=== PATIENT | male | born 1950 | race Caucasian/White ===

== ENCOUNTER 2025-08-08 12:46 | Emergency (ER) | payer MEDICARE, SELFPAY ==
--- OUTSIDE RECORDS SUMMARY | 2025-08-08 12:49 | XMS_ITS | Clinical Summary ---
Author Organization [facility] Address [address] [place] [address] Phone [email or web address] Providers Care Forester Silviculture Name Role Phone Alexander Gutierrez MD Unavailable Social History Tobacco UseTypesPacks/DayYears UsedDateSmoking Tobacco: Never AssessedSex and Gender InformationValueDate RecordedSex Assigned at BirthNot on fileLegal Sex Male02/25/2024 7:12 PM PDTGender IdentityNot on fileSexual OrientationNot on file Plan of Treatment Not on file Care Teams Team MemberRelationshipSpecialtyStart DateEnd Date Alexander Gutierrez MD [address] [place] [address] [facility] Attributed Provider09/16/23
--- OUTSIDE RECORDS SUMMARY | 2025-08-08 12:49 | XMS_ITS | Patient Health Record ---
Author Organization [facility] Address [address] [place], [place] [id number] Care Team Providers Care Form Setter Steel Forms Name Role Phone Alexander Gutierrez Primary Care Provider Bridger Abrams Unavailable [phone] Allergies No Known Allergies Reason For Referral No Information Medications Medication SIG (Take, Route, Frequency, Duration) Notes Start Date End Date Status Metoprolol Tartrate 25 MG 1 tablet with food Ora lly Once daily ActiveTamsulosin HCl 0.4 MG1 capsule Orally Once dailyActiveRamipril 10 MG1 capsule Orally Once dailyActiveOmeprazole 40 MG1 capsule 30 minutes before morning meal Orally Twice dailyActiveLantus SoloStar 100 UNIT/ML20 units SC Daily; Duration: 90 daysActiveHumaLOG KwikPen 100 UNIT/ML5 units SC Three times dailyActivemetFORMIN HCl 1000 MG1 tablet with a meal Orally Twice dailyActive Rosuvastatin Calcium 40 MG1 tablet Orally Once dailyActive Social History Tobacco Use: Social History Observation Description Date Details (start date - stop date) Former Smoker NA - NA Tobacco Use/Smoking Question Answer Notes Are you a former smoker How long has it been since you last smoked?> 10 yearsAlcohol Screen Question Answer Notes Did you have a drink containing alcohol in the p ast year? Yes How often did you have a drink containing alcohol in the past year?4 or more times a week (4 points)Jcdcic3ZzsjfbtizfhnxvBeemkact Problems Problem Type SNOMED Code ICD Code Onset Dates Problem Status W/U Status Risk Notes Problem Hyperglycemia due to type 2 diabetes mellitus (359567172945245) Type 2 diabetes mellitus with hyperglycemia (E11.65) AhcjgpjlxqwrdglC1F goal less than 7%. Taking Metformin, Lantus 10 units at 10 AM and Humalog TID before mealsProblemHyperlipidemia (87519963)Hyperlipidemia, unspecified (E78.5)ActiveconfirmedLDL goal less than 70, will check. on statin ProblemEssential hypertension (43524849)Essential (primary) hypertension (I10) Activeconfirmedabove goal today; advised Ramipril increase, prefers home BP log first Plan Of Treatment Pending Test Test Name Order Date TSH- Thyroid Stimulating Hormone 022 TSH- Thyroid Stimulating Hormone 023 COMPREHENSIVE METABOLIC PNL W/eGFR 06/30 COMPREHENSIVE METABOLIC PNL W/eGFR 10/13 HEMOGLOBIN A1c WITH eAG 06/30/2022 HEMOGLOBIN A1c WITH eAG 10/13/2022 Microalb/Creat Ratio, [facility] Ur 2 Microalb/Creat Ratio, [facility] Ur 3 LIPID 06/30/2022 LIPID 10/13/2022 Insurance Providers Payer Name Payer Address Payer Phone Subscriber Number Group Number Insured Name Patient Relationship to Insured Coverage Start Date Coverage End Date [facility] Medicare Complete [address] [address] [place] [address] [id number] Perfecto Jett - patient is the insured Medical (General) History Medical History History ICD Code atrial fibrillation No anxiety disorder Noarthritis Nohiatal hernia Nogout Noasthma Nodepression No thyromegaly Nocarpal tunnel Noneuropathy Noseizures Nohepatitis C Nokidney stones Yesheart murmur Noesophageal reflux Yesosteoporosis Noirritable bowel syndrome Nocancer, prostate Nocancer, breast Nosleep disorder, chronic Nostroke (thrombotic) No
--- OUTSIDE RECORDS SUMMARY | 2025-08-08 12:49 | XMS_ITS | CCD ---
Author Name Interface, [id number] [address] Organization [facility] [place] [address] Allergies and Adverse Reactions Medication/Group Name Reaction Severity Date No known allergies Reason for Visit OV 15 MIN Functional Status Date Name/Question Score/Answer 01/06/2024 ECOG performance status - grade 0 0 02/22/2024 ECOG performance status - grade 0 0 Medications Date Name Route Dose Frequency Instructions Start Date End Date Status Fill Status Indication 04/27/2023 Rosuvastatin Calcium Oral ynzghe8004/27/2023Tamsulosin Aastjtcfbc12/12/2023Omeprazole Oral Delayed Release Fhmtolzrixczh95/12/2023Ramipril Rcxdvuytep50/12/2023Insulin Lispro Subcutaneous Pen 100 unit/mLINJECT 5 UNITS WITH EACH MEAL THREE TIMES HTRJLaypdxx99/12/2023 Metformin Afqicfnsql04/12/2023Metoprolol Oral (Tartrate)svqsma6004/27/2023Insulin Glargine Subcutaneous Pen 100 unit/mLINJECT 15 UNITS UNDER THE SKIN ONCE DAILY active Problems Diagnosis Status Date of Diagnosis Resolution Date Primary malignant neoplasm o f colon (disorder) Active 04/05/2023 Colorectal cancerActivePainless rectal bleeding (finding)ActiveDiabetes mellitus type 1 (disorder)ActiveEssential hypertension (disorder)Active Hypercholesterolemia (disorder)Active Social History Date Name Value 04/05/2023 Sex Male
[2025-08-08 13:05] VITALS: BP 148/77; PULSE 59; RESP 16; TEMP 36.6; O2SAT 97; BMI 28.6
--- NOTE | 2025-08-08 13:12 | ED_ITS ---
HPI - General Adult General Chief complaint: Lower Extremity Swelling Stated complaint: L leg swollen from knee down, urgent sent Time Seen by Provider: 08/08/25 13:02 History of Present Illness HPI narrative: Patient here today after initial presentation Urgent Care with left lower extrem ity swelling and redness. UC concerned about blood clot. He traveled here with his via car and is staying with son in [place] for the holidays. 75-year-old man presenting to the emergency department with concern of swelling of his left lower leg along with some redness. No fever. Presented initially to urgent care and due to concern of potential thrombus was directed to [facility] department on this [place]. Travel here from [place] via car. Here for the holidays with their son. Accompanied by spouse. No chest pain. No shortness of breath. Does have a history of DVT same side. Does not continue to anticoagulate. Does have a history of diabetes. Takes insulin. Related Data Home Medications ?Medication ?Instructions ?Recorded ?Confirmed blood-glucose sensor (FreeStyle #1 ea 08/08/25 5 Howard 3 Plus Sensor device) insulin glargine 100 unit/mL (3 15 unit subcut DAILY 1 10/09/24 08/08/25 mL) subcutaneous pen (Lantus Solostar U-100 Insulin) insulin lispro 100 unit/mL 5 unit subcut 3XD 08/08/25 08/08/25 subcutaneous pen metformin 1,000 mg tablet 1,000 mg PO BID 08/08/25 metoprolol tartrate 25 mg tablet 25 mg PO BID 08/08/25 08/08/25 omeprazole 40 mg capsule,delayed 40 mg PO BID 08/08/25 08/08/25 release ramipril 10 mg capsule 10 mg PO DAILY 08/08/2507/17 rosuvastatin 40 mg tablet 40 mg PO DAILY 08/08/2507/17 tamsulosin 0.4 mg capsule mg PO 08/08/25 08/08/25 trazodone 50 mg tablet 50 mg PO QPM 08/08/25 Previous Rx's ?Medication ?Instructions ?Recorded enoxaparin 80 mg/0.8 mL 80 mg (0.8 mL) subcut Q12H 1 4 days 08/08/25 subcutaneous syringe (Lovenox) #22.4 mL warfarin 5 mg tablet 5 mg PO DAILY 14 days #14 ta bs 08/08/25 Allergies Allergy/AdvReac Type Severity Reaction Status Date / Time No Known Drug Allergies Allergy Verified 08/08/25 12:09 Review of Systems Status of ROS: Reports: 6 or more systems reviewed and unremarkable except as noted in History and below [facility] Social History Smoking Status: Never smoker Do you use any of these nicotine containing products: None Second hand tobacco smoke exposure: No How often do you have a drink containing alcohol: never AUDIT-C Alcohol total score: 0 Non-prescribed substance use: denies use Exam Narrative: Exam Narrative: Pleasant. NAD. Breathing easily. Lungs appear clear. Heart in regular rate and rhythm. Examination of lower extremities without evidence of trauma. Left lower leg is tender to palpation in the calf, positive Homans. Some degree of tenseness. 1+ pitting edema. I do not appreciate significant induration of the skin suggest a cellulitis. All this is contrary to findings in the right leg. Const: Vital Signs, click to edit/add: Vital Signs - 24 hr 08/08/25 13:05 Temperature 97.8 F Pulse Rate [Pulse Oximeter] 59 L Respiratory Rate 16 Blood Pressure [Ri ght Upper Arm] 148/77 H Pulse Oximetry 97 Oxygen Delivery Me thod Room Air Documenting provider has reviewed patient's vital signs: yes Course Vital Signs Vital signs: Initial Vital Signs Temperature 97.8 F 08/08/25 13:05 Temperature Source Temporal Artery Scan 08/08/25 13:05 Pulse Rate 59 L 08/08/25 13:05 Respiratory Rate 16 08/08/25 13:05 Blood Pressure 148/77 H 08/08/25 13:05 Blood Pressure Mean 100 08/08/25 13:05 Blood Pressure Position Sitting 08/08/25 13:05 Pulse Oximetry 97 08/08/25 13:05 Oxygen Delivery Method Room Air 08/08/25 13:05 Vital Signs Temperature 97.8 F 08/08/25 13:05 Pulse Rate 59 L 08/08/25 13:05 Respiratory Rate 16 08/08/25 13:05 Blood Pressure 148/77 H 08/08/25 13:05 Pulse Oximetry 97 08/08/25 13:05 Oxygen Delivery Method Room Air 08/08/25 13:05 Temperature 97.8 F 08/08/25 13:05 Pulse Rate 59 L 08/08/25 13:05 Respiratory Rate 16 08/08/25 13:05 Blood Pressure 148/77 H 08/08/25 13:05 Pulse Oximetry 97 08/08/25 13:05 Oxygen Delivery Method Room Air 08/08/25 13:05 Medications Administered Medications: Discontinued Medications Generic Name Dose Route Start Last Admin Trade Name Jacinto PRN Reason Stop Dose Admin Enoxaparin Sodium 80 mg 08/08/25 16:39 08/08/25 16:46 Enoxaparin 80 Mg/0.8 Ml Inj SUBCUT 08/08/25 16:40 80 mg ONCE ONE Administration Warfarin Sodium 5 mg 08/08/25 16:36 08/08/25 16:54 Warfarin 5 Mg Tablet PO 08/08/25 16:37 5 mg ONCE ONE Administration Medical Decision Making MDM Narrative Medical decision making narrative: I would definitely have concern of DVT in this left leg. I suppose could be ruptured Montoya's cyst but not really described as that. I do not think this is infectious. I have requested ultrasound of the left lower extremity. Without respiratory symptoms to suggest propagation elsewhere. Monitored on oximetry. Did discuss findings with audio visual collections coordinator who confirms DVT. Some question as to whether not may have been subacute or in partially resolved from prior but I think this has been long enough to suspect that this is a new event. I did discuss this case also with radiologist. Suspicion is that this is an acute process. INDICATION: Leg pain and swelling. TECHNIQUE: Ultrasound venous duplex lower left extremity. Compression venous exam was performed using garcias-scale, color Doppler, and spectral Doppler analysis. COMPARISON: None. FINDINGS: Deep veins: Incidental duplicated femoral and popliteal veins. Acute partial DVT in 1 of the paired distal femoral and popliteal veins. Otherwise, sonographic imaging demonstrates the left common femoral, deep femoral, posterior tibial and the contralateral right common femoral veins to be fully compressible with normal color Doppler blood flow. Superficial veins: Greater saphenous vein is fully compressible. No popliteal cyst. IMPRESSION: Acute partial DVT in 1 of the paired distal femoral and popliteal veins. Case discussed with Joseph Burns at 3:24 p.m. on 08/08/2025. Dictated by Jackson Kelley MD @ 08/08/2025 3:17:14 PM Discussing anticoagulation. Challenged by coverage coming to the end of the year and tiers of medicine coverage. Spouse is quite informed in this regard. Preferences for them are to follow up for recommended treatment with NOAC or other after the beginning of the year with primary care provider in [place]. In the meantime they would like to do stop gap. Discussed possible ideas for alternatives, ideas for coverage, in this case also with our hospitalist and did decide to proceed with warfarin and enoxaparin injections. With alternate treatment being considered here we did draw blood than for baseline, particularly INR and hemoglobin. See patient discharge plan for further discussion Giving you a dose of 5 mg of Coumadin and 80 mg of enoxaparin here in the emergency department. Sending you a 2 weeks supply to the pharmacy. You can always change the amount that you actually want to fill. Follow-up as planned with your primary care provider in the beginning of August Safe travels. Medical Records Medical records reviewed: Yes I reviewed the patient's medical records Lab Data Lab results reviewed: Yes I reviewed the patient's lab results Labs: Lab Results 08/08/25 08/08/25 Range/Units 16:02 16:02 Hgb 14.0 (13.5-17.5) gm/dL INR 1.01 (0.91-1.10) Sodium 137 (135-149) mmol/L Potassium 3.7 (3.6-5.1) mmol/L Chloride 104 (96-114) mmol/L Carbon Dioxide 25 (20-32) mmol/L Anion Gap 8 (7-15) mEq/L BUN 10 (7-30) mg/dL Creatinine 1.0 (0.5-1.5) mg/dL Estimated Creat Clear 63.65 Estimated GFR 79 ml/min Glucose 120 H (60-115) mg/dL Calcium 9.8 (8.4-10.6) mg/dL Lab Acknowledgement Test Added Test Added Discharge Plan Discharge Clinical Impression: DVT (deep venous thrombosis) Patient Disposition: Home w/ Parent or Adult Condition: Stable Additional Instructions: Giving you a dose of 5 mg of Coumadin and 80 mg of enoxaparin here in the emergency department. Sending you a 2 weeks supply to the pharmacy. You can always change the amount that you actually want to fill. Follow-up as planned with your primary care provider in the beginning of August travels. Prescriptions: New enoxaparin [Lovenox] 80 mg/0.8 mL syringe 80 mg subcut Q12H 14 Days Qty: 22.4 0RF warfarin 5 mg tablet 5 mg PO DAILY 14 Days Qty: 14 0RF No Action trazodone 50 mg tablet 50 mg PO QPM omeprazole 40 mg capsule,delayed release(DR/EC) 40 mg PO BID tamsulosin 0.4 mg capsule PO metformin 1,000 mg tablet 1,000 mg PO BID ramipril 10 mg capsule 10 mg PO DAILY insulin lispro 100 unit/mL insulin pen 5 unit subcut 3XD rosuvastatin 40 mg tablet 40 mg PO DAILY metoprolol tartrate 25 mg tablet 25 mg PO BID insulin glargine [Lantus Solostar U-100 Insulin] 100 unit/mL (3 mL) insulin pen 15 unit subcut DAILY (DME) FreeStyle Howard 3 Plus Sensor Device See Rx Instructions .ROUTE QID Qty: 1 Rx Instructions: As directed Follow Up/Referrals: Provider,Not a Local [Primary Care Provider, Family Practice] Stand Alone Forms: MyHealth Info Instructions
--- NOTE | 2025-08-08 13:28 | CRLHL7_ITS ---
For Patients: As a result of the Century Cures Act, medical imaging exams and procedure reports are released immediately into your electronic medical record. You may view this report before your referring provider. If you have questions, please contact your health care provider. INDICATION: Leg pain and swelling. TECHNIQUE: Ultrasound venous duplex lower left extremity. Compression venous exam was performed using garcias-scale, color Doppler, and spectral Doppler analysis. COMPARISON: None. FINDINGS: Deep veins: Incidental duplicated femoral and popliteal veins. Acute partial DVT in 1 of the paired distal femoral and popliteal veins. Otherwise, sonographic imaging demonstrates the left common femoral, deep femoral, posterior tibial and the contralateral right common femoral veins to be fully compressible with normal color Doppler blood flow. Superficial veins: Greater saphenous vein is fully compressible. No popliteal cyst. IMPRESSION: Acute partial DVT in 1 of the paired distal femoral and popliteal veins. Case discussed with Joseph Burns at 3:24 p.m. on 08/08/2025. Dictated by Jackson Kelley MD @ 08/08/2025 3:17:14 PM (Electronically Signed)
--- OUTSIDE RECORDS SUMMARY | 2025-08-08 13:37 | XMS_ITS | Data Portability ---
Author Organization [facility], [facility], [facility] Address [address] [place] [address] Care Team Providers Care Net Finisher Name Role Phone ROYCE SALAS Colorectal Surgeon [phone] FRANSISCA CULLEN Primary Care Provider Assessment No assessment recorded. Plan of Treatment Reminders Order DateSubmit DateProviderLast Modified ByOrganization DetailsLast Modified TimeDetailsAppointmentsNone recorded.Labculture, stool tpgtzknj6[facility], [address], [address], [place], [address], 07/24/2025 12:15:00pancreatic elastase, stool07/17/2025 07/17/20252015upewtglm1[facility], [address], [address], [place], [address], 07/24/2025 12:15:37C diff DNA, qual, PCRrmachado9[facility], [address], [address], [place], [address], 07/24/2025 12:15:57ADV0007/17/2025 07/17/2025[facility], [address], [address], [place], [address], 110/02/2024 18:09:59CMP, serum or uuhrdi63 [facility], [employer] [address], [address], [place], [address], Ph [phone] 18:09:59CRP, high sensitivity, serum or nxqpax9407/17/2025 07/17/2025[facility]NA[facility], [employer] [address], [address], [place], [address], Ph [phone] 18:10:01iron panel, serum or gmkyii9007/17/2025 07/17/20258169fqlbj3Tdgghlj, [address] [place] [address] [address], [address], [place], [address], Ph [phone] 10:11:26TIBC (total iron-binding capacity), serum lcaro7[facility], [address] [place] [address] [address], [address], [place], [address], Ph [phone] 10:11:27ferritin, serum or plasma [facility], [address] [place] [address] [address], [address], [place], [address], Ph [phone] 18:10:03mma (methylmalonic acid), serum lcaro7[facility], [address] [place] [address] [address], [address], [place], [address], Ph [phone] 10:11:27vitamin D, 25-hydroxy, total, serumTHENALcecyorp, [facility] [address], [address], [place], [address], Ph [phone] 18:10:01prealbumin, serum THENALelizabet, [address] [place] [address] [address], [address], [place], [address], Ph [phone] 18:10:04carcinoembryonic Ag, quant, serum or nilson11/08/20237803vagdkzkb911Ktmzwvw, [address], [address], [place], [address], 16/07/2024 19:43:41ReferralNone recorded.Procedurescolonoscopy procedure (PROC) - Procedure Code: 22470 [facility], [address], [address], [place], [address], [address] 13:12:46SurgeriesNone recorded.ImagingCT, chest + abdomen + pelvis, w/ nwfdnbud70/04/2024 [facility] [place] [facility], [address], [address], [place], [address], 45/ 12:37:00Medication Orders Imodium A-D 2 mg ecisri44/[facility], [address] [place], [address], 88 16:39:38cholestyramine (with sugar) 4 gram oral agqtza94/ [facility], [address] [place], [address], 91 11:55:21peg 3350-electrolytes 236 gram-22.74 gram-6.74 gram-5.86 gram xjykqvuo07[facility], [address] [place], [address], 10/20/2023 15:07:12Dulcolax Stool Softener (docusate) 100 mg xeatdkd4410/20/2023 10/20/2023[facility], [address] [place], [address], 03/01/2024 15:07:11 Patient TargetsNo targets recorded. Patient Instructions Encounter Date Encounter Id Patient Instructions Last Modified By Organization Details Last Modified Time 07/21/2023 [id number] rectal cancer: care instructions Not available 07/21/2023 12:40:54 01/25/2024 [id number] rectal cancer: care instructions Not available 01/25/2024 15:53:53 07/26/2024 [id number] rectal cancer: care instructions Not available 07/26/2024 15:13:23 Reason for Referral None Reported. Results Created Date Observation Date Name Description Value Unit Range Abnormal Flag Note LastModifiedBy Organization Detail LastModifiedTime 11/11/2023 11/11/2023 .POCGLUBED glu POC bdside 157 mg/dL 70-100 high Performing User: [id number] Performed at: [facility] Not Available [facility] (Lab) [address] , [place], [address], 03/ 12:51:07 /ATHOLOGY TISSUE REQUESTsurgical pathology report. RESPONSIBLE PATHOLOGIST: HUSSEIN HANNAH MD COLLECTED DATE/TIME: 11/11/2023 10:32 MST RECEIVED DATE/TIME: 11/11/2023 13:39 [facility] Surgical Pathology Report - 11/12/2023 12:34 [facility] - Auth (Verified) Specimen A Random Colon Bx Diagnosis Colon, endoscopic biopsy: - Colonic mucosa with mild reactive changes. - Normal crypt morphology without evidence of lymphocytic or active colitis, dysplasia or neoplasia. Electronically Signed By HUSSEIN HANNAH MD 11/12/2023 12:34INT Gabe Patterson Pathologist Life Insurance Sales Agent 11/12/2023 10:26 [facility] DDT Microscopic Description Microscopic slide examination is performed and supports the above diagnosis. Subsequent to interpretation of routine H&E stained tissue, a board certified pathologist has determined that all additional testing performed on the patient 's sample is pertinent and necessary in rendering the above diagnosis. All H&E, histochemical and immunohistochemical stains are performed per protocols developed at [facility], [address] [facility], [facility], Control slide staining is documented as an internal quality coordinator measure daily, and all tissue blocks, slides and reports are archived in accordance with guidelines established by the College [employer] (CAP). [facility], Department of Pathology and Laboratory Medicine, is certified under the Clinical Laboratory Improvement Amendments of 1988 (CLIA) as qualified to perform high-complexity clinical testing. Gross Description Labeled random colon are multiple joyce tissue fragments, 0.3 to 0.6 cm. TE1. HENOK REYEZ (ASCP) HARDIK/HARDIK/MAIN 11/11/2023 14:47 MST Clinical History Noninfective gastroenteritis and colitis, unspecified Procedure: Colonoscopy Preoperative Diagnosis: Noninfective gastroenteritis and colitis, unspecified Postoperative Diagnosis: PendingNot [facility] (Lab) [address] , [place], [address], 03 15:34:34 /2809XIJhvn8.7NG/mL0.0-4.7normalNonsmokers <3.9 Smokers <5.6 [facility] Electrochemiluminescence Immunoassay (ECLIA) Values obtained with different assay methods or kits cannot be used interchangeably. Results cannot be interpreted as absolute evidence of the presence or absence of malignant disease.Not Available[facility] ([facility]) [address] [place], [address], 72 06:22:35 4CEAcea2.1NG/mL0.0-4.7normalNonsmokers <3.9 Smokers <5.6 [facility] Electrochemiluminescence Immunoassay (ECLIA) Values obtained with different assay methods or kits cannot be used interchangeably. Results cannot be interpreted as absolute evidence of the presence or absence of malignant disease.Not Available[facility] ([facility]) [address] [place], [address], 310/02/2023 06:19:51 5COMP. METABOLIC PANEL (14)interpretation:COMMENTGFR estimate at the following level for >or=3 months is classified as follows: GFR WITH KIDNEY DAMAGE WITHOUT KIDNEY DAMAGE >or=90 Stage 1 Normal 60-89 Stage 2 Decreased GFR 30-59 Stage 3 Stage 3 15-29 Stage 4 Stage 4 <15 (or dialysis) Stage 5 Stage 5 Estimated GFR will over estimate true GFR if serum creatinine is rising as in acute renal failure and will under estimate true GFR if serum creatinine is declining as in resolving acute renal failure. Additional information may be foundat [email or web address].Not AvailableLab[facility] ([facility]) [address] [place], [address], 9210/02/2024 18:09:59 OMP. METABOLIC PANEL (14)vjvlyhh338mk/bB51-16zcftw high normalNot AvailableLab[facility] ([facility]) [address] [place], [address], 8310/02/2024 18:09:59 OMP. METABOLIC PANEL (14)QKJ26gx/dL8-27normalNot Available [facility] ([facility]) [address] [place], [address], Ph [phone]/02/2024 18:09:59 OMP. METABOLIC PANEL (14)creatinine1.04mg/dL0.76-1.27normal Not AvailableLab[facility] ([facility]) [address] [place], [address], 1110/02/2024 18:09:59 OMP. METABOLIC PANEL (14)sFVL14hT/min/1.73>59normalNot AvailableLab[facility] ([facility]) [address] [place], [address], 9010/02/2024 18:09:59 /OMP. METABOLIC PANEL (14)BUN/creatinine odtnn2133-71ihrhcz Not AvailableLab[facility] ([facility]) [address] [facility], [place], [address], Ph [phone] 18:09:59 OMP. METABOLIC PANEL (14)vropge193befn/G569-446eexgy low normalNot AvailableLab[facility] ([facility]) [address] [facility], [place], [address], Ph [phone] 18:09:59 5COMP. METABOLIC PANEL (14)potassium4.4mmol/L3.5-5.2normalNot AvailableLab[facility] ([facility]) [address] [facility], [place], [address], Ph [phone] 18:09:59 OMP. METABOLIC PANEL (14)otraoqfs088ajaj/N37-767cghswcBbj AvailableLab[facility] ([facility]) [address] [facility], [place], [address], Ph [phone] 32227873310/02/2024 18:09:59 5COMP. METABOLIC PANEL (14)carbon dioxide, qqorl39uosg/L20-29 below low normalNot AvailableLab[facility] ([facility]) [address] [facility], [place], [address], Ph [phone] 18:09:59 OMP. METABOLIC PANEL (14)calcium9.3mg/dL8.6-10.2normalNot AvailableLab[facility] ([facility]) [address] [place], [address], Ph (706) 3110/02/2024 18:09:59 /OMP. METABOLIC PANEL (14)protein, total6.6g/dL6.0-8.5normal Not AvailableLab[facility] ([facility]) [address] [place], [address], Ph [phone]/ 18:09:59 /5COMP. METABOLIC PANEL (14)albumin4.0g/dL3.8-4.8normalNot AvailableLab[facility] ([facility]) [address] [facility], [place], [address], Ph [phone] 18:09:59 OMP. METABOLIC PANEL (14)globulin, total2.6g/dL1.5-4.5Not AvailableLab[facility] ([facility]) [address] [facility], [place], [address], Ph [phone] 18:09:59 OMP. METABOLIC PANEL (14)bilirubin, total0.6mg/dL0.0-1.2 normalNot AvailableLab[facility] ([facility]) [address] [facility], [place], [address], Ph [phone] 18:09:59 OMP. METABOLIC PANEL (14)alkaline uwpjrfxeykm55SA/L47-123 normalNot AvailableLab[facility] ([facility]) [address] [facility], [place], [address], Ph [phone] 18:09:59 OMP. METABOLIC PANEL (14)AST (SGOT)30IU/L0-40normalNot AvailableLab[facility] ([facility]) [address] [facility], [place], [address], Ph [phone] 18:09:59 OMP. METABOLIC PANEL (14)ALT (SGPT)32IU/L0-44normalNot AvailableLab[facility] ([facility]) [address] [facility], [place], [address], Ph [phone] 18:09:59 BC, PLATELET, NO DIFFERENTIALWBC6.8x10e3/uL3.4-10.8normal Not AvailableLab[facility] ([facility]) [address] [facility], [place], [address], 9910/02/2024 18:09:59 BC, PLATELET, NO DIFFERENTIALRBC4.71t74u6/uL4.14-5.80normal Not AvailableLab[facility] ([facility]) [address] [facility], [place], [address], 9310/02/2024 18:09:59 BC, PLATELET, NO LWOPDHOPHVMNyhaxahowiu72.0g/dL13.0-17.7 normalNot AvailableLab[facility] ([facility]) [address] [facility], [place], [address], 5510/02/2024 18:09:59 BC, PLATELET, NO FFMIPFBZKJCDzrycqbigrc83.4%37.5-51.0normal Not AvailableLab[facility] ([facility]) [address] [place], [address], 7410/02/2024 18:09:59 BC, PLATELET, NO HNGISUGCRVWTWZF22dL99-85femsgtKax AvailableLabcorp ([facility]) [address] [place], [address], 3510/02/2024 18:09:59 BC, PLATELET, NO OVCOQFAQBSHHMCS34.1pg26.6-33.0normalNot AvailableLab[facility] ([facility]) [address] [place], [address], 9710/02/2024 18:09:59 BC, PLATELET, NO OKOQFFJTXHMSBTIL40.0g/dL31.5-35.7normalNot AvailableLab[facility] ([facility]) [address] [facility], [address], Ph ([phone]) 52008010/02/2024 18:09:59 BC, PLATELET, NO PNWUZMVBNYJLGJH21.7%11.6-15.4Not Available [facility] ([facility]) [address] [facility], [address], Ph (706) 3110/02/2024 18:09:59 BC, PLATELET, NO GSWBAZHAQHUSzorxspque142u96k2/hR152-238 normalNot AvailableLab[facility] ([facility]) [address] [facility], [place], [address], Ph (706) 3110/02/2024 18:09:59 BC, PLATELET, NO DIFFERENTIALNRBCNPNot AvailableLab[facility] ([facility]) [address] [facility], [address], Ph [phone]) -5858810/02/2024 18:09:59 VITAMIN D, 25-HYDROXYvitamin D, 25-laysucf18.8NG/mL 30.0-100.0Vitamin D deficiency has been defined by the Bradford of Medicine and an Endocrine Society practice guideline as a level of serum 25-OH vitamin D less than 20 ng/mL (1,2). The Endocrine Society wenton to further define vitamin D insufficiency as a level between 21 and 29 ng/mL (2). 1. IOM (Bradford of Medicine). 2010. Dietary reference intakes for calcium and D. [place]: The National Academies Press. 2. Kush MF, Kenny NC, Perry COON, et al. Evaluation, treatment, and prevention of vitamin D deficiency: an Endocrine Society clinical practice guideline. JCEM. 2010; 96(7):1911-30.Not Available [facility] ([facility]) [address] [place], [address], 510/02/2024 18:10:01 /5C-REACTIVE PROTEIN, CARDIACC-reactive protein, cardiac0.43 mg/L0.00-3.00Relative Risk for Future Cardiovascular Event Low <1.00 Average 1.00 - 3.00 High >3.00Not AvailableLab[facility] ([facility]) [address] [place], [address], Ph (706) 3110/02/2024 18:10:01 /06/20252440NCKQPOXKjedsseeh84OF/uL35-174tezwwgCdd AvailableLabcorp ([facility]) [address] [place], [address], Ph ([phone] 71466210/02/2024 18:10:03 7552EVVXZHOVARijhlpjomqw17js/dL9-32Not AvailableLab[facility] ([facility]) [address] [place], [address], Ph [phone] -9792510/02/2024 18:10:03 /STOOL CULTUREE coli shiga toxin EIANEGATIVEnegativeNot AvailableLabco ([facility]) [address] [place], [address], Ph [phone]) -5113110/01/2024 17:09:56 STOOL CULTUREsalmonella/shigella screenFINAL REPORTNot AvailableLabco ([facility]) [address] [place], [address], Ph ([phone]) -2384310/01/2024 17:09:56 STOOL CULTUREresult 1COMMENTNo Salmonella or Shigella recovered.Not AvailableLab[facility] ([facility]) [address] [place], [address], Ph ([phone]) -7526710/01/2024 17:09:56 STOOL CULTUREcampylobacter cultureFINAL REPORTNot Available [facility] ([facility]) [address] [facility], [place], [address], 210/01/2024 17:09:56 STOOL CULTUREresult 1COMMENTNo Campylobacter species isolated.Not AvailableLab[facility] ([facility]) [address] [facility], [place], [address], 6910510/01/2024 17:09:56 PANCREATIC ELASTASE, FECALpancreatic elastase, ug_elast./g>200Severe Pancreatic Insufficiency: <100 Moderate Pancreatic Insufficiency: 100 - 200 Normal: >200Not AvailableLab[facility] ([facility]) [address] [facility], [place], [address], Ph [phone] -1796510/01/2024 17:09:57 T, chest + abdomen + pelvis, w/ contrastNo observation recorded.[facility] Ltd [place] [facility] [address], [place], [address], 01/04/2024 15:49:170/T, chest + abdomen + pelvis, w/ contrast No observation recorded.pncpfkgu5Cpljncgtq [facility] [address], [place], [address], 01/04/2024 15:49:1814CT, chest + abdomen, w/ contrastNo observation recorded.euqoemrw5Ipistiwt [facility] [address], [place], [address], 07/31/2024 12:21:57 Result Notes None recorded. Problems Name Problem SNOMED Code Status Onset Date Resolution Date Notes Provider Name and Address Organization Details Recorded Time Gastroesophageal reflux disease 362608512 Active Sariah berg [place] - [facility], [facility]04/27/2023 12:49:41Hypertensive disorder [id number] Britt null, [facility], [facility]04/27/2023 12:49:[id number] [facility], [facility], [facility]04/27/2023 12:49:41Polyp of [id number] [facility], [facility], [facility]04/27/2023 12:49:41Diabetes [id number] [facility], [facility], [facility]04/27/2023 12:49:41Type 1 diabetes mellitus [id number] [facility], [facility], [facility]04/27/2023 12:49:41Essential hypertension [id number] [facility], [facility], [facility]04/27/2023 12:49:41Hypercholesterolemia [id number] [facility], [facility], [facility]04/27/2023 12:49:41Painless rectal bleeding [id number]/14/2023[facility], [facility], [facility]04/27/2023 12:49:41Malignant neoplasm of [id number]/31/2023[facility], [facility], [facility]04/27/2023 12:49:41Malignant neoplasm of nbgsge700215088Iexssd84/24/2023Royce Salas MD [address], [place], [address], [facility], [facility]01/18/2025 15:21:33Chronic [id number] Vvniez6210/20/2023Royce Salas MD [address], [place], [address], [facility], [facility]07/17/2025 12:09:13 Problem Notes Documentation Provider Name and Address Organization D etails Recorded Time Oncologist Consult Note : [facility] ??? [address], [place] [address]UQVPGH, John W (id #[id number], : 1950) Documents sent via fax will include the following message: This fax may contain sensitive and confidential personal health information that is being sent for the sole use of the intended recipient. Unintended recipients are directed to securely destroy any materials received. You are hereby notified that the unauthorized disclosure or other unlawful use ofthis fax or any personal health information is prohibited. To the extent patient information contained in this fax is subject to 42 CFR Part 2, this regulation prohibits unauthorized disclosure of these records. If you received this fax in error, please visit [email or web address] to notify the sender and confirm that the information will be destroyed. If you do not have internet access, please call to notify the sender and confirm that the information will be destroyed. Thank you for your attention and cooperation. [ID:[id number]][facility] [address] [facility] [address] [place] [address] , Date: 07/21/2023RE: Omar Jett, : 1950, PT ID #[id number] Parkinson MD, I would like to thank you for referring Omar Jett to our practice for consultation and evaluation of Followup: Malignant tumor of rectum , on 07/21/2023. I have enclosed a copy of the office evaluation for your records. Once again, thank you for allowing me to participate in the care of this patient. Sincerely, Electronically Signed by: ROYCE SALAS MD Encounter Reason/Date Followup: Malignant tumor of rectum 07/21/2023 - 11:00AM [facility] [facility] History of Present IllnessThe patient is a 73-year-old male who was seen most recently in postoperative valuation on 06/08/2023. The patient underwent a robotic low anterior section with full mobilization of splenic flexure, cystoscopy with catheterization, flexible sigmoidoscopy on 05/20/2023. He was doing well at his previous visit. He comes back for his 6-week follow-up to be released from postoperative restrictions. 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 Curative resection. No indication for adjuvant chemotherapy. Will recommend surveillance per NCCN guidelines with CT chest/abdomen/pelvis with IV contrast, CEA level every 6 months with exam. Colonoscopy at 1 year postop. Patient states that he is doing pretty well. His energy level is improving. He is denying fever chills nausea or vomiting. Has been tolerating a diet but still has low appetite. He still has some left lower quadrant discomfort. Slight tenderness today. I have advised him if that does not improve over the next couple weeks to let me know and we will get a CT scan earlier than anticipated. Patient will need a repeat CT scan of the chest abdomen pelvis at 6 months after surgery as well as CEA level for his colon cancer surveillance. He will need a colonoscopy at 1 year. Due to his location, we will plan for his imaging studies and blood work to be done and then to have a televisit unless he has acute issues and would like to be examinedReview of [facility] as noted in the HPI Physical ExamConstitutional:General Appearance: healthy-appearing and well- nourished. Level of Distress: NAD. Musculoskeletal::General: ambulating normally. Eyes:Lids and Conjunctivae: non-injected and anicteric. HENMT:Head: normocephalic and atraumatic. Neck:Neck: supple and trachea midline. Thyroid: non-tender. Pulmonary:Respiratory effort: no dyspnea. Auscultation: breath sounds normal and good air movement. Cardiovascular:Heart Auscultation: RRR and no murmurs. Extremities: no edema. Gastrointestinal:Bowel Sounds: normal. Inspection and Palpation: soft, non- distended, andLLQ tenderness. Hernia: none noted. Skin:Inspection and palpation: no rash or visible lesions. Lymphatic:Lymph Nodes: no cervical adenopathy or inguinal adenopathy. Psychiatric:Insight: good judgement and insight. Mental Status: normal mood and affect and alert.Procedure DocumentationNone recordedAssessment/Plan1. Malignant tumor of rectum-S/P Robotic LAR for rectal cancer- Pathology pT2pN0, Stage 1 disease, surgically cured- Will plan for NCCN guidelines surveillance, CT/CEA every 6 months, Colonoscopy in one year- Released from postop restrictions- Will plan for CT chest/abdomen/pelvis with IV contrast and CEA level in December 2023- Will plan for televisit to discuss those results C20: Malignant neoplasm of rectum RECTAL CANCER: CARE INSTRUCTIONS CEA - To be performed on or around 12/15/2023 CT, CHEST + ABDOMEN + PELVIS, W/ CONTRAST - To be performed on or around 12/15/2023 Height (ft.): 5 ft 8 in Weight (lbs): 191 Return to Office to see Royce Salas MD at [facility], [address]-Colorectal on or around 12/20/2023 Tony Uribe MD [address], [place], [address], [facility] - [facility], [facility]10/20/2023 15:02:09Gastroenterologist Consult Note : [facility] [employer] [facility] ??? [address], [place] [address]RAUYFA, John W (id #[id number], : 1950) Documents sent via fax will include the following message: This fax may contain sensitive and confidential personal health information that is being sent for the sole use of the intended recipient. Unintended recipients are directed to securely destroy any materials received. You are hereby notified that the unauthorized disclosure or other unlawful use ofthis fax or any personal health information is prohibited. To the extent patient information contained in this fax is subject to 42 CFR Part 2, this regulation prohibits unauthorized disclosure of these records. If you received this fax in error, please visit [email or web address] to notify the sender and confirm that the information will be destroyed. If you do not have internet access, please call to notify the sender and confirm that the information will be destroyed. Thank you for your attention and cooperation. [ID:[id number]][facility] [address] [facility] [address] [place] [address] , Date: 4RE: Omar Jett, : 1950, PT ID #[id number] Parkinson MD, I would like to thank you for referring Omar Jett to our practice for consultation and evaluation of Transition of Care Encounter Follow Up Followup: Malignant tumor of rectum , on 01/25/2024. I have enclosed a copy of the office evaluation for your records. Once again, thank you for allowing me to participate in the care of this patient. Sincerely, Electronically Signed by: ROYCE SALAS MD Encounter Reason/DateTransition of Care Encounter Follow Up Followup: Malignant tumor of rectum 01/25/2024 - 01:15PM - [facility], [facility] 250-Colorectal History of Present IllnessThe patient is a 73-year-old male who was seen and evaluated most recently in postoperative follow-up on 07/21/2023. The patient underwent a robotic low anterior resection for rectal cancer in May2023. Surgical pathology demonstrated a pT2, PN 0 curative resection. The patient was recommended for NCCN guidelines with a CT scan of the chest abdomen pelvis with IV contrast and a CEA level every 6 months with exam. Patient was recommended for colonoscopy 1 year postop. Patient presents back today for his 6-month surveillance. He was ordered for a CEA level as well as a CT scan of the chest abdomenpelvis. CT scan of the chest on pelvis was performed on 12/30/2023. This had no evidence of metastatic disease, postsurgical changes of the rectum, new omental lesions compatible with fat necrosis. The patient is doing well. He is tolerating diet well. His only major complaint is multiple loose bowel movements a day with some urgency. This does happen occasionally long-term after a right colectomy. We will try first-line medications with Imodium and cholestyramine. Will see how his body responds. I have advised him to call the office in about 4 weeks and let me know how that is going. We will plan to see him back in 6 months for continued cancer surveillance.Review of SystemsROS as noted in the HPIPhysical Exam Constitutional:General Appearance: healthy-appearing and well-nourished. Level of Distress: NAD. Musculoskeletal::General: ambulating normally. Eyes:Lids and Conjunctivae: non-injected and anicteric. HENMT:Head: normocephalic and atraumatic. Neck:Neck: supple and trachea midline. Thyroid: non-tender. Pulmonary:Respiratory effort: no dyspnea. Auscultation: breath sounds normal and good air movement. Cardiovascular:Heart Auscultation: RRR and no murmurs. Extremities: no edema. Gastrointestinal:Bowel Sounds: normal. Inspection and Palpation: soft, non- distended, no tenderness, and surgical scars. Hernia: none noted. Skin:Inspection and palpation: no rash or visible lesions. Lymphatic:Lymph Nodes: no cervical adenopathy or inguinal adenopathy. Psychiatric:Insight: good judgement and insight. Mental Status: normal mood and affect and alert.Procedure DocumentationNone recordedAssessment/Plan1. Malignant tumor of rectum-S/P Robotic LAR for rectal cancer- Pathology pT2pN0, Stage 1 disease, surgically cured- Will plan for NCCN guidelines surveillance, CT/CEA every 6 months, Colonoscopy in one year Surveillance CT/CEA normalDiarrhea persistent - Will start imodium and cholestyramine-Will call us in 4 weeks to update Follow up in the office in 6 months for continued cancer surveillance C20: Malignant neoplasm of rectum RECTAL CANCER: CARE INSTRUCTIONS 2. Chronic vlprdrfgN04.9: Noninfective gastroenteritis and colitis, unspecified Imodium A-D 2 mg tablet - Take 1 tablet(s) 4 times a day by oral route for 30 days. Qty: (120) tablet Refills: 3 Pharmacy: [facility] 1411 cholestyramine (with sugar) 4 gram oral powder - Take 1 scoop(s) twice a day by oral route. Qty: (2) 378 gram jar Refills: 3 Pharmacy: [facility] 1411 Return to Office to see Royce Salas MD at [facility] 250-Colorectal on or around 07/26/2024 Royce Salas MD for *Follow-up 15 at [facility] 250-Colorectal on 07/26/2024 at 01:00 PM Lisa berg, [facility]01/25/2024 19:22:04 Procedures Surgical History Date Name Laterality Status Provider Name and Address Organization Details Recorded Time 05/12/2023 Telehealth Communication Rosa Salas MD [address] [address], [place], [address], [facility], [facility]05/12/2023 11:07:45003/29/2023Hospital Follow UpcompletEver Nice [facility], [facility]03/18/2023 16:40:56003/29/2023Transitional_Care_ManagementcompletEver Nice [facility], [facility]03/18/2023 16:40:56002/02/2020colonoscopycompletbryon Nice [facility], [facility]01/15/2023 14:00:54 02/02/2020[facility], [facility]01/15/2023 14:01:06Knee arthroscopy/surgerycomfre[facility] institute[facility], [facility]01/15/2023 14:01:12 Imaging Results None recorded. Procedure Notes None recorded. Medical Equipment None Reported. Allergies No known drug allergies Medications Name Sig Start Date Stop Date Status Note LastModified by Organization Details LastModified Time Prescription - Renewal activeNot AvailableNot AvailableNot AvailableMiralax 17 gram/dose oral powder Take 238 g as needed by oral route in the morning for 1 day.04/15/2023ctiveNot AvailableNot AvailableNot Availablemethocarbamol 500 mg tabletTAKE 1 TABLET BY MOUTH FOUR TIMES DAILYactiveNot AvailableNot AvailableNot Availableerythromycin 500 mg tabletTake 6 tablets as needed by oral route as directed for 1 day.active Not AvailableNot AvailableNot Availabletrazodone 50 mg tabletTAKE 1 TABLET BY MOUTH ONCE DAILY AT BEDTIMEactiveNot AvailableNot AvailableNot Available ondansetron HCl 8 mg tabletTAKE ONE TABLET BY MOUTH DAILY01/15/2023ompletedNot AvailableNot AvailableNot Availableondansetron HCl 4 mg tabletTAKE 1 TABLET BY MOUTH EVERY 8 HOURS NEEDED FOR NAUSEA OR VOMITINGactiveNot AvailableNot AvailableNot Availablesulfamethoxazole 800 mg-trimethoprim 160 mg tabletTAKE 1 TABLET BY MOUTH EVERY 12 HOURS FOR 7 DAYS07/14/2025ompletedNot AvailableNot AvailableNot Availablepeg-electrolyte solution 420 gram oral solutionTHE DAY BEFORE COLONOSCOPY MIX THE SOLUTION WITH WATER. DRINK THE 1ST HALF FROM 12 PM TO 2 PM AND THE 2ND HALF FROM 6 PM TO 8 PM04/15/2023ompletedNot AvailableNot AvailableNot Availableomeprazole 40 mg capsule,delayed releaseactiveNot AvailableNot AvailableNot Availablesildenafil 100 mg tabletTAKE 1 TABLET BY MOUTH ONCE DAILY NEEDEDactiveNot AvailableNot AvailableNot AvailableImodium A-D 2 mg tabletTake 1 tablet 4 times a day by oral route for 30 days.01/25/2024 activeNot AvailableNot AvailableNot Availabletamsulosin 0.4 mg capsuleactiveNot AvailableNot AvailableNot AvailableOneTouch Ultra Test stripsCHECK BLOOD SUGAR THREE TIMES DAILY04/15/2023ompletedNot AvailableNot AvailableNot Available benzonatate 100 mg capsuleTAKE 1 CAPSULE BY MOUTH THREE TIMES DAILY FOR 7 DAYS activeNot AvailableNot AvailableNot Availabledoxycycline monohydrate 100 mg capsuleTAKE 1 CAPSULE BY MOUTH TWICE DAILY FOR 10 DAYS01/15/2023ompletedNot AvailableNot AvailableNot Availablecephalexin 500 mg capsuleTAKE 1 CAPSULE BY MOUTH EVERY 8 HOURS FOR 7 DAYSactiveNot AvailableNot AvailableNot Available metformin 1,000 mg tabletactiveNot AvailableNot AvailableNot Availablegabapentin 300 mg capsuleactiveNot AvailableNot AvailableNot Availableneomycin 500 mg tabletTake 6 tablets as needed by oral route as directed for 1 day.activeNot AvailableNot AvailableNot Availableramipril 5 mg capsulecap(s), Oral, Daily, 0 Refill(s)12/05/2018activeNot AvailableNot AvailableNot Availableramipril 10 mg capsuleactiveNot AvailableNot AvailableNot AvailableDulcolax (bisacodyl) 5 mg tablet,delayed releaseTake 4 tablets as needed by oral route in the evening for 1 day.04/15/2023ctiveNot AvailableNot AvailableNot Availableoxycodone 5 mg tabletTAKE 1 TABLET BY MOUTH EVERY 6 HOURS NEEDED FOR PAIN POST OPERATIVE PAINactiveNot AvailableNot AvailableNot Availableinsulin lispro (U-100) 100 unit/mL subcutaneous penINJECT 5 UNITS SUBCUTANEOUSLY THREE TIMES DAILY WITH MEALSactiveNot AvailableNot AvailableNot Availablecholestyramine (with sugar) 4 gram oral powderTake 1 scoop twice a day by oral route.activeNot AvailableNot AvailableNot Availablerosuvastatin 40 mg tabletactiveNot AvailableNot Available Not Availablemetoprolol tartrate 25 mg tablettab(s), Oral, BID, 0 Refill(s) activeNot AvailableNot AvailableNot AvailableDulcolax Stool Softener (docusate) 100 mg capsuleTake 2 capsules twice a day by oral route as directed for 1 day. 10/20/2023ctiveNot AvailableNot AvailableNot AvailableBD Ultra-Fine Short Pen Needle 31 gauge x 5/16USE THREE TIMES DAILYactiveNot AvailableNot AvailableNot Availablepeg 3350-electrolytes 236 gram-22.74 gram-6.74 gram-5.86 gram solution TAKE 2000 ML BY MOUTH TWICE A DAY DIRECTED FOR 1 DAYactiveNot AvailableNot AvailableNot AvailableLantus Solostar U-100 Insulin 100 unit/mL (3 mL) subcutaneous penINJECT 15 UNITS SUBCUTANEOUSLY ONCE DAILYactiveNot AvailableNot AvailableNot Availableoxycodone 10 mg tabletTAKE 1/2 (ONE-HALF) TABLET BY MOUTH EVERY 6 HOURS NEEDED FOR KIDNEY STONE PAINactiveNot AvailableNot AvailableNot AvailablePhazyme 250 mg capsuleTake 2 capsules as needed by oral route at bedtime for 1 day.04/15/2023ctiveNot AvailableNot AvailableNot AvailableToujeo SoloStar U-300 Insulin 300 unit/mL (1.5 mL) subcutaneous penactiveNot Available Not AvailableNot AvailableOneTouch Ultra2 MeterCHECK BLOOD SUGAR THREE TIMES DAILY3completedNot AvailableNot AvailableNot AvailableOneTouch Delica Plus Lancet 33 gaugeCHECK BLOOD SUGAR THREE TIMES DAILY3completedNot AvailableNot AvailableNot AvailableBinaxNOW COVID-19 Ag Self Test kitTEST DIRECTED TODAY3completedNot AvailableNot AvailableNot Available FreeStyle Howard 3 Plus Sensor deviceUSE 4 TIMES A DAY DIRECTED; CHANGE SENSORS EVERY 15 DAYS.activeNot AvailableNot AvailableNot Available Vitals Date Recorded Body height Body mass index (BMI) Body weight Systolic And Diastolic Provider Name and Address Organization Details Last Updated DateTime 10/20/2023 172.72 cm 29.6 kg/m2 71073.36 g 106/60 mm[Hg] Suha Powell [place] [facility] 10/20/2023 14:57:56 Date Recorded Body height Body mass index (BMI) Body weight Oxygen saturation Systolic And Diastolic Provider Name and Address Organization Details Last Updated DateTime 01/25/2024 172.72 cm 29.7 kg/m2 94316.31 g 94 % 126/72 mm[Hg] Elva Diez MA [facility], [facility] 4 16:01:33 Date Recorded Body height Heart rate Oxygen saturation Systolic And Diastolic Provider Name and Address Organization Details Last Updated DateTime 07/17/2025 172.72 cm 56 /min 98 % 137/79 mm[Hg] Rose Marie Denise MA [facility], [facility] 07/17/2025 12:01:42 Date Recorded Body height Body mass index (BMI) Body weight Heart rate Oxygen saturation Systolic And Diastolic Provider Name and Address Organization Details Last Updated DateTime 3 172.72 cm 29 kg/m2 43209.7 8 g 59 /min 98 % 137/77 mm[Hg] Elisabeth Jarrett [facility], [facility] 3 12:30:02 Date Recorded Body height Body mass index (BMI) Body weight Heart rate Oxygen saturation Systolic And Diastolic Provider Name and Address Organization Details Last Updated DateTime 4 172.72 cm 30.7 kg/m2 39796.3 8 g 58 /min 99 % 128/73 mm[Hg] Roshni Michelle MA [facility], [facility] 4 15:06:45 Social History Question Answer Notes LastModified by Organization D etails LastModified Time Tobacco Smoking Status Former Smoker SMITHA Zamudio, [facility], [facility]04/15/2023 16:18:07Do You Have An Advance Directive?Qnhuxcqeyaq178Gzqftwbbqgi not zsgqirfmh40/02/2023What Is Your Level Of Caffeine Consumption?Pbweuktklwnyiycynpm347Epbywvkjyus not fiujabfwo88/02/2023 When Did You Quit Smoking?16+nnoiurtzsfuyfwdgvjwwwsgjbfvsggdbab4Dpdkxuhbsvc not fgoafgdmk44/31/2023Has The Patient Ever Had A Blood Transfusion?Rumvotvaqih919 Information not rvvplkymw10/02/2023Is Patient Willing To Receive Blood Transfusion If Necessary?Drcnprmgtdws145Ahaqhwicwmu not bfgdxobzd18/02/2023Had Prior Anesthesia?Wzkgimrbxdbm249Zvxolrdbgxf not wephghmeg37/02/2023revious Reaction(s) To Anesthesia?Zgihtxkgmvp491Uamonjpoysa not oqnjhdlws43/02/2023o You Have A Medical Power Of Cosmetic Assembler?Mdpgkxllcrp121Wzphviotmis not available 01/15/2023What Was The Date Of Your Most Recent Tobacco Screening?07/17/2025 cthzr1Qaoksxbrqki not uxangwjyq69/02/2025 Sex: Unknown Functional Status Question Answer Note LastModified by Organization D etails LastModified Time How many times per week do you consume alcohol? 3-4 times per week wevdrwjbayv6Rcptzcwiptd not kqqciyobw29/31/2023o you use any illicit or recreational drugs?Mdiuqdepposzmn5Msajsnntqzb not cxucbrprd16/14/2023What is your level of alcohol consumption?Xlvqzlruqecduptaobn276Peqzawhcjxs not /02/2023 Mental Status None recorded. Family History Relationship Description Onset Age of this Age Resolved Age Notes LastModified by Organization Details LastModified Time Sister Malignant neoplasm of liver qeojpicsz747Jfo rvwivrihl93/02/2023 14:00:00MotherHeart rlfhdzdmriavkkytul5Duf bxajfyfqv31/31/2023 16:17:00 Medical History Condition Response PATIENT DENIES SIGNIFICANT PAST MEDICAL HISTORY Y Immunizations Vaccine Type Date Status Note Provider Nam e and Address Organization Details Recorded Time zoster recombinant 07/17/2023 completed SMITHA Abel, [facility], [facility]10/20/2023 14:58:02COVID-19, mRNA, LNP-S, PF, 30 mcg/0.3 mL dose1cSMITHA Nuñez, [facility], [facility]04/15/2023 16:14:27COVID-19, mRNA, LNP-S, PF, 30 mcg/0.3 mL dose1cSMITHA Nuñez [facility], [facility]04/15/2023 16:14:27COVID-19, mRNA, LNP-S, PF, 30 mcg/0.3 mL dose1compSMITHA Kimble, [facility], [facility]04/15/2023 16:14:27COVID-19, mRNA, LNP-S, bivalent, PF, 30 mcg/0.3 mL dose2compSMITHA Kimble, [facility], [facility]04/15/2023 16:14:27COVID-19, mRNA, LNP-S, bivalent, PF, 30 mcg/0.3 mL dose2completeSMITHA Cotton, [facility], [facility]04/15/2023 16:14:27Influenza, high-dose, trivalent, PF05/24/2018completSMITHA Licea, [facility], [facility]04/15/2023 16:14:27Influenza, split virus, trivalent, PF04/18/2020completSMITHA Licea, [facility], [facility]04/15/2023 16:14:27 Past Encounters Encounter ID Performer Location Encounter Start Date Encounter Closed Date Diagnosis/Indication Diagnosis SNOMED-CT Code Diagnosis ICD10 Code Diagnosis IMO Codes Diagnosis Note [id number] Chris Parkinson MD [place]_[address] [facility] 160 [address] [facility] [address] [place] [address] 01/15/2023 12:24:15 01/15/2023 15:55:34 Gastroesophageal reflux disease without esophagitis 151928399 K21.9 -Proceed with EGD I discussed the benefits and risks of endoscopy with the patient, including risk of reactions to anesthesia, bleeding, infection and perforation. The patient expresses verbal understanding of these risks and agrees to proceeds. Medication use before and after the procedure was discussed. Questions answered. Further recommendations and follow-up pending endoscopy findings Abdominal dlav54404684I87.9 See as [id number] Safdar, MDN_[address] [place] [address] 03/29/2023 14:03:14003/29/2023 16:40:28Painless rectal kymytgut463663868Z79.5 -Proceed with [SCREENING/DIAGNOSTIC] colonoscopy RICAROD-Instructions for Miralax colonoscopy prep given.I discussed the benefits and risks of colonoscopy with the patient, including the risk of reactionsto anesthesia, bleeding, infection and perforation. The patient expresses verbal understanding of these risks and agrees to proceed. Medication use before and after the procedure was discussed.Questions answered.Further recommendations and follow-up pending colonoscopy findings. [id number] Mcmahon[address], [address] [place] [address] 04/15/2023 15:57: 17:36:18Malignant neoplasm of qitbm499521702F66.9 - Staging workup: CT chest/abdomen/pelvis with IV contrast, CEA level STAT- Preop labs, EKG- Will need to see PCP for preoperative clearance, medical optimization and cardiac risk stratification for general anesthesia- Will plan for Robotic LAR, Possible DLI- ERAS protocol, bowel [id number] ABDULKADIR Mcmahon[address], [address] [place] [address] 05/12/2023 10:47:25005/12/2023 13:08:35Malignant neoplasm of wmuif011908676Y13.9 - Staging workup: CT chest/abdomen/pelvis with IV contrast, CEA level STAT- Preop labs, EKG- Will need to see PCP for preoperative clearance, medical optimization and cardiac risk stratification for general anesthesia- Will plan for Robotic LAR, Possible DLI- ERAS protocol, bowel [id number] ABDULKADIR Mcmahon[address], [address] [place] [address] 06/08/2023 16:48:231 19:36:11Malignant neoplasm of djcnvn511437796Z63 S/P Robotic LAR for rectal cancer- Pathology pT2pN0, Stage 1 disease, surgically cured- Will plan for NCCN guidelines surveillance, CT/CEA every 6 months, Colonoscopy in one year- Will continue postop restrictions- Will follow up in the office in 4 weeks.[id number] Mcmahon[address], [address] [place] [address] 07/21/2023 12:20:30109/21/2022 13:25:21Malignant neoplasm of mileor521052442H97 S/P Robotic LAR for rectal cancer- Pathology pT2pN0, Stage 1 disease, surgically cured- Will plan for NCCN guidelines surveillance, CT/CEA every 6 months, Colonoscopy in one year- Released from postop restrictions- Will plan for CT chest/abdomen/pelvis with IV contrast and CEA level in December 2023- Will plan for televisit to discuss those results [id number] Neves_[address] [facility] [address] [place] [address] 10/20/2023 14:19:03010/20/2023 16:35:35Chronic ztrtfomp897662643K49.9 will plan for diagnostic colonoscopyprocedure explainedquestions answered. can start immodium [id number] [facility]mahon[address], [address] [place] [address] 01/25/2024 15:49:05001/25/2024 16:37:54Malignant neoplasm of cpaigs500869179Q24 S/P Robotic LAR for rectal cancer- Pathology pT2pN0, Stage 1 disease, surgically cured- Will plan for NCCN guidelines surveillance, CT/CEA every 6 months, Colonoscopy in one year Surveillance CT/CEA normalDiarrhea persistent - Will start imodium and cholestyramine-Will call us in 4 weeks to update Follow up in the office in 6 months for continued cancer surveillance Chronic xincgwpc514326121K16.9 [id number] Mcmahon[address], [address] [place] [address] 07/26/2024 14:56:29109/26/2023 21:21:40Malignant neoplasm of yzolft576871415K55 S/P Robotic LAR for rectal cancer- Pathology pT2pN0, Stage 1 disease- Surveillance CT negative, small indeterminate lesion of liver will follow up with next scan- Surveillance per NCCN guidelines- CEA level pending Follow up in 6 months. [id number] Osullivan[address] [place] [address] 07/17/2025 11:42:41109/17/2024 14:14:31Chronic vwpawnyi759177576I41.9 20050 Will plan for stool studies, evaluation to rule out infectionWill plan for pancreatic elastase, rule out pancreatic insufficiencyWill plan for laboratory results to evaluate for inflammatory markers Health Concerns Section Related Observation LastModified by Organization Detai ls LastModified Time None Recorded Concern Status LastModified by Organization Details LastModified Time None Recorded Advance Directives Directive N: Payers Insurance Date Sequence Insurance Name Policy Number Policy Garcia Covered Member ID Garcia Member ID Guarantor Name 07/02/2025 1 [facility]VANT[facility] - HMO) Omar [id number] W [id number] (MEDICARE REPLACEMENT/ADVANTAGE - HMO)[id number] Jett [id number] W Xdjmli3507/02/2025[facility][id number] Omar [id number] W *SELF PAY*Omar Jett [facility] (MEDICARE REPLACEMENT/ADVANTAGE - HMO)[id number] W [id number] W [id number] [facility] (MEDICARE REPLACEMENT/ADVANTAGE - HMO)[id number] W Jett [id number] Bradford Jett*SELF PAY*Omar Felder [facility] (MEDICARE REPLACEMENT/ADVANTAGE - HMO)[id number] Bradford [id number] [facility] [place] ([facility]AC[facility]/ADVANTAGE - HMO)[id number] Bradford [id number] Bradford Jett Notes Date Note Type Note Provider Name and Address Orga nization Details Recorded Time 07/21/2023 text/html ROS as noted in the HPI The patient is a 73-year-old male who was seen most recently in postoperative valuation on 06/08/2023. The patient underwent a robotic low anterior section with full mobilization of splenic flexure, cystoscopy with catheterization, flexible sigmoidoscopy on 05/20/2023. He was doing well at his previous visit. He comes back for his 6-week follow-up to be released from postoperative restrictions. 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 Curative resection. No indication for adjuvant chemotherapy. Will recommend surveillance per NCCN guidelines with CT chest/abdomen/pelvis with IV contrast, CEA level every 6 months with exam. Colonoscopy at 1 year postop. Patient states that he is doing pretty well. His energy level is improving. He is denying fever chills nausea or vomiting. Has been tolerating a diet but still has low appetite. He still has some left lower quadrant discomfort. Slight tenderness today. I have advised him if that does not improve over the next couple weeks to let me know and we will get a CT scan earlier than anticipated. Patient will need a repeat CT scan of the chest abdomen pelvis at 6 months after surgery as well as CEA level for his colon cancer surveillance. He will need a colonoscopy at 1 year. Due to his location, we will plan for his imaging studies and blood work to be done and then to have a televisit unless he has acute issues and would like to be examinedRoyce Salas MD [address] [address], [place], [address], [facility]07/21/2023 12:42:4903text/html Referred for evaluation of chronic diarrhea , more than 15 timessince last yr , after his colectomy for ca colontumor was in rectosigmoid are, no chemo required no testing done.no blood in stoolTony Uribe MD [address], [place], [address], [facility], [facility]10/20/2023 15:07:1906text/htmlROS as noted in the HPI The patient is a 73-year-old male who was seen and evaluated most recently in postoperative follow-up on 07/21/2023. The patient underwent a robotic low anterior resection for rectal cancer in May2023. Surgical pathology demonstrated a pT2, PN 0 curative resection. The patient was recommended for NCCN guidelines with a CT scan of the chest abdomen pelvis with IV contrast and a CEA level every 6 months with exam. Patient was recommended for colonoscopy 1 year postop. Patient presents back today for his 6-month surveillance. He was ordered for a CEA level as well as a CT scan of the chest abdomenpelvis. CT scan of the chest on pelvis was performed on 12/30/2023. This had no evidence of metastatic disease, postsurgical changes of the rectum, new omental lesions compatible with fat necrosis. The patient is doing well. He is tolerating diet well. His only major complaint is multiple loose bowel movements a day with some urgency. This does happen occasionally long-term after a right colectomy. We will try first-line medications with Imodium and cholestyramine. Will see how his body responds. I have advised him to call the office in about 4 weeks and let me know how that is going. We will plan to see him back in 6 months for continued cancer surveillance.Royce Salas MD [address], [place], [address], [facility], [facility]01/25/2024 [id number]/htmlROS as noted in the HPI The patient is a 74-year-old male with a history of rectal cancer. Patient underwent a low anteriorresection 05/2023. Surgical pathology pT2, PN 0 stage I disease surgically curative resection. Patient has been seen for surveillance per NCCN guidelines. Patient presents back for 6-month interval follow-up. The patient underwent a CT scan of the chest abdomen pelvis with contrast on 05/27/2024. This showed few scattered micronodules granulomatous disease. Status post rectal resection with rectosigmoid anastomosis no findings of residual or recurrent disease. Indeterminate 7 mm hypodense lesion in the medial left hepatic lobe further characterization with liver mass protocol MRI may be performed to further characterize. CEA level not yet back. Patient states that he is feeling great. He still having frequent bowel movements and what sounds like fractionated stool. No blood, no mucus, no abdominal pain, no other concerns. No urinary symptoms. No fever chills nausea or vomiting. He has been tolerating his diet. He is maintaining his weight. His abdominal exam is completely benign. Scar is almost invisible at this point. Overall he is doing fantastic. No acute concerns. Will plan to see him back in 6 months. He is going to go get his blood drawn at [facility]. Will follow-up with those results.Royce Salas MD [address] [address], [place], [address], [place] [facility], [facility]07/26/2024 [id number]/17/2024text/html The patient is a 75-year-old male with a history of rectal cancer. The patient underwent a low anterior resection in May 2023, surgical pathology demonstrating pT2, pN0, stage I disease surgically curative resection. Patient has been followed in surveillance per NCCN guidelines. Patient has had significant right upper abdominal pain with chronic diarrhea. He presents back for reevaluation. Patient states that he has some right upper quadrant pain that radiates towards his back. He is having 10-15 liquid bowel movements per day. Having a lot of urgency. He feels that even when he urinates he sometimes has to defecate. The Imodium and the cholestyramine did not seem to help at all. Right now were not sure if it is an issue with digestion, inflammation, or infection. Will plan to get stool studies, will plan for possible budesonide or pancreatic enzymes depending on results. Patientdenies any nausea or vomiting, no fever or chills, abdominal exam is benign. No difference in diet restriction. Will plan to see him back in 2 weeks with results and discussion of next steps. Royce Salas MD [address] [address], [place], [address], [place] [facility], [facility]07/17/2025 12:10:21
--- OUTSIDE RECORDS SUMMARY | 2025-08-08 13:37 | XMS_ITS | CCD ---
Author Name Interface, [id number] [address] Organization [facility] [place] [address] Allergies and Adverse Reactions Medication/Group Name Reaction Severity Date No known allergies Reason for Visit OV 15 MIN Functional Status Date Name/Question Score/Answer 01/06/2024 ECOG performance status - grade 0 0 02/22/2024 ECOG performance status - grade 0 0 Medications Date Name Route Dose Frequency Instructions Start Date End Date Status Fill Status Indication 04/27/2023 Rosuvastatin Calcium Oral wvhkau8704/27/2023Tamsulosin Kogsneandc44/12/2023Omeprazole Oral Delayed Release Ntvmtaeoeqoyx69/12/2023Ramipril Hvgofzzdsr72/12/2023Insulin Lispro Subcutaneous Pen 100 unit/mLINJECT 5 UNITS WITH EACH MEAL THREE TIMES VSZTExfgato96/12/2023 Metformin Hrqukyuwcg92/12/2023Metoprolol Oral (Tartrate)jlqdrv6004/27/2023Insulin Glargine Subcutaneous Pen 100 unit/mLINJECT 15 UNITS UNDER THE SKIN ONCE DAILY active Problems Diagnosis Status Date of Diagnosis Resolution Date Primary malignant neoplasm o f colon (disorder) Active 04/05/2023 Colorectal cancerActivePainless rectal bleeding (finding)ActiveDiabetes mellitus type 1 (disorder)ActiveEssential hypertension (disorder)Active Hypercholesterolemia (disorder)Active Social History Date Name Value 04/05/2023 Sex Male
--- OUTSIDE RECORDS SUMMARY | 2025-08-08 13:37 | XMS_ITS | CCD ---
Author Name Interface, [email or web address] [address] Organization [facility] [place] [address] Allergies and Adverse Reactions Medication/Group Name Reaction Severity Date No known allergies Reason for Visit OV 15 MIN Functional Status Date Name/Question Score/Answer 01/06/2024 ECOG performance status - grade 0 0 02/22/2024 ECOG performance status - grade 0 0 Medications Date Name Route Dose Frequency Instructions Start Date End Date Status Fill Status Indication 04/27/2023 Rosuvastatin Calcium Oral wlmfsf5004/27/2023Tamsulosin Lbgethnllf17/12/2023Omeprazole Oral Delayed Release Dfxilmkqhyopg89/12/2023Ramipril Shpyuatmhk34/12/2023Insulin Lispro Subcutaneous Pen 100 unit/mLINJECT 5 UNITS WITH EACH MEAL THREE TIMES PNRYYzqhxud59/12/2023 Metformin Zqoaelglke63/12/2023Metoprolol Oral (Tartrate)vbepca8504/27/2023Insulin Glargine Subcutaneous Pen 100 unit/mLINJECT 15 UNITS UNDER THE SKIN ONCE DAILY active Problems Diagnosis Status Date of Diagnosis Resolution Date Primary malignant neoplasm o f colon (disorder) Active 04/05/2023 Colorectal cancerActivePainless rectal bleeding (finding)ActiveDiabetes mellitus type 1 (disorder)ActiveEssential hypertension (disorder)Active Hypercholesterolemia (disorder)Active Social History Date Name Value 04/05/2023 Sex Male
--- OUTSIDE RECORDS SUMMARY | 2025-08-08 13:37 | XMS_ITS | Continuity of Care Document ---
Author Organization [place] - [facility] - [facility], [facility], [address] Address [address] [place] [address] Care Team Providers Care Surgical Services Asst Name Role Phone ROYCE SALAS Colorectal Surgeon FRANSISCA CULLEN Primary Care Provider Assessment No assessment recorded. Plan of Treatment Reminders Order DateSubmit DateProviderLast Modified ByOrganization DetailsLast Modified TimeDetailsAppointmentsNone recorded.Labculture, stool nqqkfctn5[facility], [address], [address], [place], [address], 07/24/2025 12:15:00pancreatic elastase, stool07/17/2025 07/17/20256029esnlbbkm2[facility], [address], [address], [place], [address], 07/24/2025 12:15:37C diff DNA, qual, PCRrmachado9[facility], [address], [address], [place], [address], 07/24/2025 12:15:41GIE4707/17/2025 07/17/2025[facility], [address], [address], [place], [address], 110/02/2024 18:09:59CMP, serum or yihecu98 [facility], [address], [address], [place], [address], Ph [phone] 18:09:59CRP, high sensitivity, serum or cjpkws9307/17/2025 07/17/2025THENALelizabet, [address], [address], [place], [address], Ph [phone] 18:10:01iron panel, serum or kttwdh5907/17/2025 07/17/20252944pxxvu0Hfk[facility], [address], [address], [place], [address], Ph [phone] 10:11:26TIBC (total iron-binding capacity), serum lcaro7[facility], [facility] [address], [place], [address], Ph [phone] 10:11:27ferritin, serum or plasma THENALelizabet, [facility], [address], [place], [address], Ph [phone] 18:10:03mma (methylmalonic acid), serum lcaro7[facility], [facility], [address], [place], [address], Ph [phone] 10:11:27vitamin D, 25-hydroxy, total, serumTHENALelizabet, [facility] [address], [address], [place], [address], Ph [phone] 18:10:01prealbumin, serum THENALelizabet, [facility] [address], [place], [address], Ph [phone] 18:10:04ReferralNone recorded.Procedures None recorded.SurgeriesNone recorded.ImagingNone recorded.Medication OrdersNone recorded. Patient TargetsNo targets recorded. Patient InstructionsNo instructions recorded. Reason for Referral None Reported. Results Created Date Observation Date Name Description Value Unit Range Abnormal Flag Note LastModifiedBy Organization Detail LastModifiedTime 07/25/2025 07/25/2025 COMP. METABOLIC PANEL (14) interpretat ion: COMMENT GFR estimate at the following level for >or=3 [...] information may be foundat [email or web address].Not AvailableLab[facility] ([facility]) [address] [place], [address], 5610/02/2024 18:09:59 5COMP. METABOLIC PANEL (14)ufprzmk266qy/sI31-39veajt high normalNot AvailableLab[facility] ([facility]) [address] [place], [address], 8210/02/2024 18:09:59 5COMP. METABOLIC PANEL (14)GFE48xg/dL8-27normalNot Available [facility] ([facility]) [address] [place], [address], 1810/02/2024 18:09:59 5COMP. METABOLIC PANEL (14)creatinine1.04mg/dL0.76-1.27normal Not AvailableLab[facility] ([facility]) [address] [place], [address], 2310/02/2024 18:09:59 5COMP. METABOLIC PANEL (14)zDKW59yT/min/1.73>59normalNot AvailableLabcorp ([facility]) [address] [place], [address], Ph [phone] 18:09:59 OMP. METABOLIC PANEL (14)BUN/creatinine twtkh5729-01msildo Not AvailableLab[facility] ([facility]) [address], [place], [address], 1110/02/2024 18:09:59 /OMP. METABOLIC PANEL (14)zdyjjy996bdyp/F483-097lizcv low normalNot AvailableLab[facility] ([facility]) [address] [place], [address], Ph [phone]) 3110/02/2024 18:09:59 OMP. METABOLIC PANEL (14)potassium4.4mmol/L3.5-5.2normalNot AvailableLab[facility] ([facility]) [address] [place], [address], Ph [phone] 18:09:59 OMP. METABOLIC PANEL (14)kcuswowy205fbkq/D03-153cyquydGbu AvailableLabcorp ([facility]) [address] [place], [address], Ph ([phone]) 3110/02/2024 18:09:59 5COMP. METABOLIC PANEL (14)carbon dioxide, suudj21kast/L20-29 below low normalNot AvailableLab[facility] ([facility]) [address] [place], [address], Ph ([phone]) 3110/02/2024 18:09:59 OMP. METABOLIC PANEL (14)calcium9.3mg/dL8.6-10.2normalNot AvailableLab[facility] ([facility]) [address] [place], [address], Ph [phone]/02/2024 18:09:59 OMP. METABOLIC PANEL (14)protein, total6.6g/dL6.0-8.5normal Not AvailableLab[facility] ([facility]) [address], [place], [address], Ph (706) 3110/02/2024 18:09:59 /5COMP. METABOLIC PANEL (14)albumin4.0g/dL3.8-4.8normalNot AvailableLab[facility] ([facility]) [address], [place], [address], Ph [phone] 18:09:59 OMP. METABOLIC PANEL (14)globulin, total2.6g/dL1.5-4.5Not AvailableLab[facility] ([facility]) [address], [place], [address], Ph [phone]) 3110/02/2024 18:09:59 OMP. METABOLIC PANEL (14)bilirubin, total0.6mg/dL0.0-1.2 normalNot AvailableLab[facility] ([facility]) [address], [place], [address], Ph [phone] 18:09:59 OMP. METABOLIC PANEL (14)alkaline bxmpubclnau63KT/L47-123 normalNot AvailableLab[facility] ([facility]) [address], [place], [address], Ph (706) 3110/02/2024 18:09:59 OMP. METABOLIC PANEL (14)AST (SGOT)30IU/L0-40normalNot AvailableLab[facility] ([facility]) [address], [place], [address], Ph [phone] 18:09:59 OMP. METABOLIC PANEL (14)ALT (SGPT)32IU/L0-44normalNot AvailableLab[facility] ([facility]) [address], [place], [address], Ph [phone] 18:09:59 BC, PLATELET, NO DIFFERENTIALWBC6.8x10e3/uL3.4-10.8normal Not AvailableLab[facility] ([facility]) [address], [place], [address], Ph [phone] 18:09:59 BC, PLATELET, NO DIFFERENTIALRBC4.10m84n0/uL4.14-5.80normal Not AvailableLab[facility] ([facility]) [address], [place], [address], Ph [phone] 18:09:59 BC, PLATELET, NO ESARBZFLNXJKptrokckqsc62.0g/dL13.0-17.7 normalNot AvailableLab[facility] ([facility]) [address], [place], [address], Ph [phone] 18:09:59 BC, PLATELET, NO UOROWYJSUMERpzmdluzuem63.4%37.5-51.0normal Not AvailableLab[facility] ([facility]) [address], [place], [address], Ph [phone] 18:09:59 BC, PLATELET, NO VBSABJJEMPJWTTZ70eU50-78ywrtzxSbb AvailableLabcorp ([facility]) [address], [place], [address], Ph [phone] 18:09:59 BC, PLATELET, NO ITKPPHJMBTGZRBT69.1pg26.6-33.0normalNot AvailableLab[facility] ([facility]) [address] [place], [address], 6528310/02/2024 18:09:59 5CBC, PLATELET, NO CCDZASOZSLONYQLU10.0g/dL31.5-35.7normalNot AvailableLab[facility] ([facility]) [address] [place], [address], 9510/02/2024 18:09:59 BC, PLATELET, NO TTXQQKWFDUZRHLG85.7%11.6-15.4Not Available [facility] ([facility]) [address] [place], [address], 73188[address]/02/2024 18:09:59 5CBC, PLATELET, NO IQTRHJIMUQFObqqlmzpjm847c01r3/aS716-893 normalNot AvailableLab[facility] ([facility]) [address] [place], [address], 29[address]10/02/2024 18:09:59 5CBC, PLATELET, NO DIFFERENTIALNRBCNPNot AvailableLab[facility] ([facility]) [address] [place], [address], 110/02/2024 18:09:59 VITAMIN D, 25-HYDROXYvitamin D, 25-nqyvrmd71.8NG/mL 30.0-100.0Vitamin D deficiency has been defined by the [place] of [employer] and an Endocrine Society practice guideline as a level of serum 25-OH vitamin D less than 20 ng/mL (1,2). The Endocrine Society wenton to further define vitamin D insufficiency as a level between 21 and 29 ng/mL (2). 1. IOM ([place] of Medicine). 2010. Dietary reference intakes for calcium and D. [facility]: The National Academies Press. 2. Kush MF, Kenny YANEZ, Perry COON, et al. Evaluation, treatment, and prevention of vitamin D deficiency: an Endocrine Society clinical practice guideline. JCEM. 2010; 96(7):1911-30.Not Available [facility] ([facility]) [address] [place], [address], 2210/02/2024 18:10:01 5C-REACTIVE PROTEIN, CARDIACC-reactive protein, cardiac0.43 mg/L0.00-3.00Relative Risk for Future Cardiovascular Event Low <1.00 Average 1.00 - 3.00 High >3.00Not AvailableLab[facility] ([facility]) [address], [place], [address], 0810/02/2024 18:10:01 0289XUHVEBVIrjyzuzol24HD/tC93-601huavzeMgh AvailableLabcorp ([facility]) [address] [place], [address], Ph [phone] 32231627210/02/2024 18:10:03 8232MZEVJRUQMKnqiftjoxxy92ox/dL9-32Not AvailableLab[facility] ([facility]) [address] [place], [address], Ph [phone]/02/2024 18:10:03 Result Notes None recorded. Problems Name Problem SNOMED Code Status Onset Date Resolution Date Notes Provider Name and Address Organization Details Recorded Time Gastroesophageal reflux disease 181595878 Gino berg [facility], 04/27/2023 12:49:41Hypertensive disorder 50021792EoqgsrVvpkyJaida berg [facility], 04/27/2023 12:49:[id number] Jaida berg [facility], 04/27/2023 12:49:41Polyp of [id number] Jaida berg [facility], [facility]04/27/2023 12:49:41Diabetes [id number] [facility] [place] Britt null, [facility], [facility]04/27/2023 12:49:41Type 1 diabetes mellitus 88390402NhpcodMovis Britt null, [facility], [facility]04/27/2023 12:49:41Essential hypertension 75561988UlhxniSbgdd Britt null, [facility], [facility]04/27/2023 12:49:41Hypercholesterolemia 26289682MbazotZsftn Britt null, [facility], [facility]04/27/2023 12:49:41Painless rectal bleeding 525816084Syiral77/14/2023[facility] Britt null, [facility], [facility]04/27/2023 12:49:41Malignant neoplasm of fftgq284532817Ezikdc20/31/2023[facility] Balwinder null, [facility], [facility]04/27/2023 12:49:41Malignant neoplasm of jshmvl225275921Msjnjf83/24/2023Royce Salas MD [address], [place], [address], [facility], [facility]01/18/2025 15:21:33Chronic zupqvnib055650441 Miotjq3710/20/2023Royce Salas MD [address], [place], [address], [facility], 07/17/2025 12:09:13 Problem Notes None recorded. Procedures Surgical History Date Name Laterality Status Provider Name and Address Organization Details Recorded Time 05/12/2023 Telehealth Communication completedRoyce Salas MD [address], [place], [address], [facility], [facility]05/12/2023 11:07:45003/29/2023Hospital Follow UpcompletedGini Nice [facility], [facility]03/18/2023 16:40:56003/29/2023Transitional_Care_ManagementcomDmitriy Nice [facility], [facility]03/18/2023 16:40:56002/02/2020colonoscopycompletbryon Nice [facility], [facility]01/15/2023 14:00:54 02/02/2020endoscopycomDmitriy Nice [facility], [facility]01/15/2023 14:01:06Knee arthroscopy/surgerycomDmitriy Nice [facility], [facility]01/15/2023 14:01:12 Imaging Results None recorded. Procedure Notes [...] AvailableOneTouch Ultra2 MeterCHECK BLOOD SUGAR THREE TIMES DAILY04/15/2023ompletedNot AvailableNot AvailableNot AvailableOneTouch Delica Plus Lancet 33 gaugeCHECK BLOOD SUGAR THREE TIMES DAILY04/15/2023ompletedNot AvailableNot AvailableNot AvailableBinaxNOW COVID-19 Ag Self Test kitTEST DIRECTED TODAY01/15/2023ompletedNot AvailableNot AvailableNot Available FreeStyle Howard 3 Plus Sensor deviceUSE 4 TIMES A DAY DIRECTED; CHANGE SENSORS EVERY 15 DAYS.activeNot AvailableNot AvailableNot Available Vitals Date Recorded Body height Heart rate Oxygen saturation Systolic And Diastolic Provider Name and Address Organization Details Last Updated DateTime 07/17/2025 172.72 cm 56 /min 98 % 137/79 mm[Hg] Rose Marie Denise MA [place] - [facility] - [facility], [facility] 07/17/2025 12:01:42 Social History Question Answer Notes LastModified by Organization D etails LastModified Time Tobacco Smoking Status Former Smoker SMITHA Zamudio [place] - [facility] - [facility], [facility]04/15/2023 16:18:07Do You Have An Advance Directive?Nlignenjsbb524Trfsffnszzh not /02/2023What Is Your Level Of Caffeine Consumption?Qkvcbaxenptrdhnyybu516Yfluvqhndnv not xaodchqsr70/02/2023 When Did You Quit Smoking?16+vtxwhkbhtfjdjxflklbbjskxpfdnkhapdc8Wrmvvcekhaw not uvwotrqzv65/31/2023Has The Patient Ever Had A Blood Transfusion?Lnalhljgljx993 Information not kgpcwtsov05/02/2023Is Patient Willing To Receive Blood Transfusion If Necessary?Vkbbpgjlsysa912Vxylbnpplbo not owiaqropq90/02/2023Had Prior Anesthesia?Xrxfelbpfmnl774Fhfhaumxjmw not /02/2023revious Reaction(s) To Anesthesia?Hxuailamkko991Kgglzhkpota not tszshwytg38/02/2023o You Have A Medical Power Of Floor Layer?Yulgbmapqph844Aukyghenswc not available 01/15/2023What Was The Date Of Your Most Recent Tobacco Screening?07/17/2025 oiwuw9Uczkqyalejc not oiafwnuie27/02/2025 Sex: Unknown Functional Status Question Answer Note LastModified by Organization D etails LastModified Time How many times per week do you consume alcohol? 3-4 times per week tuckunmrfsv3Cjkyblrebwp not /31/2023o you use any illicit or recreational drugs?Jvjllxtqgojkcz1Thllcwgflml not bbzcafeqg19/14/2023What is your level of alcohol consumption?Hsmkyfacthjuhqasqfu778Xntkqqfprmi not xgqmudghm22/02/2023 Mental Status None recorded. Family History Relationship Description Onset Age of this Age Resolved Age Notes LastModified by Organization Details LastModified Time Sister Malignant neoplasm of liver kdsdtnobe348Yee mshxlzrwo39/02/2023 14:00:00MotherHeart jiivfqqslyacuuwsjd1Kds tijfsbnky95/31/2023 16:17:00 Medical History Condition Response PATIENT DENIES SIGNIFICANT PAST MEDICAL HISTORY Y Immunizations Vaccine Type Date Status Note Provider Nam e and Address Organization Details Recorded Time zoster recombinant 07/17/2023 completed SMITHA Abel, [facility], [facility]10/20/2023 14:58:02COVID-19, mRNA, LNP-S, PF, 30 mcg/0.3 mL dose1cSMITHA Nuñez [facility], [facility]04/15/2023 16:14:27COVID-19, mRNA, LNP-S, PF, 30 mcg/0.3 mL dose1compSMITHA Kimble, [facility], [facility]04/15/2023 16:14:27COVID-19, mRNA, LNP-S, PF, 30 mcg/0.3 mL dose1compSMITHA Kimble, [facility], [facility]04/15/2023 16:14:27COVID-19, mRNA, LNP-S, bivalent, PF, 30 mcg/0.3 mL dose2completeTho Mckeon MA null, [facility], [facility]04/15/2023 16:14:27COVID-19, mRNA, LNP-S, bivalent, PF, 30 mcg/0.3 mL dose2completeSMITHA Cotton, [facility], [facility]04/15/2023 16:14:27Influenza, high-dose, trivalent, PF05/24/2018completedSMITHA Zamudio, [facility], [facility]04/15/2023 16:14:27Influenza, split virus, trivalent, PF04/18/2020completSMITHA Licea, [facility], [facility]04/15/2023 16:14:27 Past Encounters Encounter ID Performer Location Encounter Start Date Encounter Closed Date Diagnosis/Indication Diagnosis SNOMED-CT Code Diagnosis ICD10 Code Diagnosis IMO Codes Diagnosis Note [id number] Royce Salas MD [address] [place] [address] 07/17/2025 11:42:41 07/17/2025 14:14:31 Chronic diarrhea 147957201 K52.9 44172 Will plan for stool studies, evaluation to rule out infectionWill plan for pancreatic elastase, rule out pancreatic insufficiencyWill plan for laboratory results to evaluate for inflammatory markers Health Concerns Section Related Observation LastModified by Organization Detai ls LastModified Time None Recorded Concern Status LastModified by Organization Details LastModified Time None Recorded Payers Encounter Date Sequence Insurance Name Policy Number Policy Garcia Covered Member ID Garcia Member ID Guarantor Name 07/17/2025 1 [facility] (MEDICARE REPLACEMENT/ADVANTAGE - HMO) [id number] Omar Jett [id number] Omar Jett Notes Date Note Type Note Provider Name and Address Orgemilio nunez Details Recorded Time 07/17/2025 text/html The patient is a 75-year-old male with [...] discussion of next steps. Royce Salas MD [address] [address], [place], [address], [place] [facility], [facility]07/17/2025 12:10:21
[2025-08-08 16:09] LABS: Hemoglobin* 14.0 gm/dL (13.5-17.5)
[2025-08-08] MEDS: ENOXAPARIN 80 MG/0.8 ML INJ SUBCUT (16:46)
[2025-08-08] MEDS: WARFARIN 5 MG TABLET PO (16:54)
[2025-08-08 16:57] LABS: Chloride* 104 mmol/L (96-114); Potassium* 3.7 mmol/L (3.6-5.1); Sodium* 137 mmol/L (135-149)
[2025-08-08 17:00] LABS: Anion Gap 8 mEq/L (7-15); Blood Urea Nitrogen* 10 mg/dL (7-30); Carbon Dioxide* 25 mmol/L (20-32); Creatinine* 1.0 mg/dL (0.5-1.5); Est. Creatinine Clearance* 63.65; Estimated Glomerular Filt Rate 79 ml/min
[2025-08-08 17:01] LABS: Calcium* 9.8 mg/dL (8.4-10.6); Glucose* 120 mg/dL (60-115); INR 1.01 (0.91-1.10); Prothrombin Time 14.1 Seconds
== END 2025-08-08 16:59 | disposition home or self-care (01) ==
PROVIDERS: Emergency Provider Family Medicine
DX: I82.432 Acute embolism and thrombosis of left popliteal vein (principal); I82.412 Acute embolism and thrombosis of left femoral vein; E11.9 Type 2 diabetes mellitus without complications; Z79.4 Long term (current) use of insulin; Z86.718 Personal history of other venous thrombosis and embolism
CPT/HCPCS: 36415; 80048; 85018; 85610; 93971; 99284; A9270; J1650